=== PATIENT | male | born 1955 | race Caucasian/White ===

== ENCOUNTER → 2024-02-15 08:41 | Outpatient (REF) | payer BC, SELFPAY ==
[2024-02-15 10:50] LABS: PSA, Total - Screen 1.41 ng/ml (0.0-4.0)
[2024-02-15 12:38] LABS: ALT (SGPT) 22 U/L (0-50); AST (SGOT) 25 U/L (17-59); Alkaline Phosphatase 52 U/L (38-126); Blood Urea Nitrogen 31 mg/dl (9-20); Calcium 9.4 mg/dl (8.4-10.2); Carbon Dioxide 27 mmol/L (22-30); Chloride 105 mmol/L (98-107); Glucose 95 mg/dl (70-99); HDL Cholesterol 63 mg/dl; LDL Cholesterol, Calculated 140 mg/dl; Potassium 4.7 mmol/L (3.5-5.1); Sodium 140 mmol/L (135-145); Total Bilirubin 1.3 mg/dl (0.2-1.3); Total Cholesterol 220 mg/dl (50-199); Total Protein 6.4 g/dl (6.3-8.2); Triglyceride 88 mg/dl (10-149); Very Low Density Lipoprotein 17 mg/dl (0-30); eGFR > 60.00
== END ==
LOC: REG 08:41
PROVIDERS: ATTENDING PHYSICIAN Family Medicine
DX: E78.2 Mixed hyperlipidemia (principal); Z12.5 Encounter for screening for malignant neoplasm of prostate
CPT/HCPCS: 36415; 80053; 80061; G0103

== ENCOUNTER → 2024-06-05 17:01 | Outpatient (REF) | payer BC, SELFPAY | LOC: RAD 17:01 | PROVIDERS: ATTENDING PHYSICIAN Family Medicine | DX: M79.672 Pain in left foot (principal); M25.571 Pain in right ankle and joints of right foot | CPT/HCPCS: 73610; 73630 ==

== ENCOUNTER → 2024-06-08 14:50 | Outpatient (REF) | payer BC, SELFPAY ==
[2024-06-08 16:31] LABS: % Basophils 0.4 % (0-2); % Eosinophils 1.6 % (0-6); % Immature Granulocytes 1.7 % (0-0.5); % Lymphocytes 22.4 % (20.5-51.1); % Monocytes 10.8 % (1.7-9.3); % Neutrophils 63.1 % (42.2-75.2); Absolute Eosinophils 0.1 10^3/uL (0-0.7); Absolute Immature Granulocytes 0.1 10^3/uL (0-0.05); Absolute Lymphocytes 1.6 10^3/uL (1.2-3.4); Absolute Monocytes 0.8 10^3/uL (0.1-0.6); Absolute Neutrophils 4.4 10^3/uL (1.4-6.5); Hematocrit 37.7 % (39.0-52.0); Mean Corp Hgb Conc. 34.5 g/dL (33.0-37.0); Mean Corpuscular Hgb 31.6 pg (27.0-31.0); Mean Corpuscular Volume 91.5 fL (80.0-94.0); Mean Platelet Volume 9.4 fL (7.4-10.4); Nucleated Red Blood Cells % 0 % (-); Platelet Count 229 10^3/uL (130-400); Red Blood Cell Count 4.12 10^6/uL (4.70-6.10); Red Cell Dist. Width 12.5 % (11.5-14.5)
[2024-06-08 16:46] LABS: Uric Acid 4.3 mg/dl (3.5-8.5)
== END ==
LOC: REG 14:50
PROVIDERS: ATTENDING PHYSICIAN Physician Assistant
DX: M25.50 Pain in unspecified joint (principal)
CPT/HCPCS: 36415; 84550; 85025; 86618

== ENCOUNTER → 2024-06-17 07:26 | Outpatient (REF) | payer BC, SELFPAY ==
[2024-06-17 10:08] LABS: Urine Albumin Trace (Neg - Trace); Urine Bilirubin Negative (Negative); Urine Character Clear (Clear); Urine Color Yellow; Urine Glucose Negative (Negative); Urine Ketone Negative (Negative); Urine Leukocyte Negative (Negative); Urine Nitrite Negative (Negative); Urine Occult Blood Negative (Negative); Urine Specific Gravity 1.025 (<1.030); Urine Urobilinogen Negative (Neg - 1+)
[2024-06-17 10:16] LABS: C-Reactive Protein < 5.00 mg/L (0.0-10.00)
[2024-06-17 10:21] LABS: NT-proBNP 384 pg/ml
[2024-06-17 10:43] LABS: Erythrocyte Sed Rate 13 mm/hour (0-20)
[2024-06-19 14:39] LABS: Rheumatoid Agglutinin Less Than 10 IU (<10 IU)
[2024-06-20 00:11] LABS: ANA, IgG Reflex to HEp-2 None Detected (None Detected)
== END ==
LOC: REG 07:26
PROVIDERS: ATTENDING PHYSICIAN Physician Assistant
DX: M25.50 Pain in unspecified joint (principal); R60.0 Localized edema
CPT/HCPCS: 36415; 81003; 83880; 85652; 86038; 86140; 86430

== ENCOUNTER → 2024-06-23 10:58 | Outpatient (REF) | payer BC, SELFPAY ==
[2024-06-26 01:00] LABS: CCP Antibody IgG/IgA 30 Units (0-19)
== END ==
LOC: REG 10:58
PROVIDERS: ATTENDING PHYSICIAN Physician Assistant; FAMILY PHYSICIAN Family Medicine
DX: M06.9 Rheumatoid arthritis, unspecified (principal); M25.40 Effusion, unspecified joint; M25.50 Pain in unspecified joint; M35.9 Systemic involvement of connective tissue, unspecified
CPT/HCPCS: 36415; 86200

== ENCOUNTER → 2024-12-08 07:45 | Outpatient (REF) | payer BC, SELFPAY | LOC: HWRAD 07:45 | PROVIDERS: ATTENDING PHYSICIAN Internal Medicine Critical Care Medicine; FAMILY PHYSICIAN Family Medicine | DX: Z87.891 Personal history of nicotine dependence (principal) | CPT/HCPCS: 71271 ==